=== PATIENT | male | born 1985 | race Hispanic/Latino ===

== ENCOUNTER 2019-01-12 00:58 | Emergency (ER) | payer OTHER ==
[2019-01-12] MEDS ORDERED: Sodium Chloride 0.9% 1,000 ML IV STA (01:24)
[2019-01-12 01:28] VITALS: TEMP 97.8; O2SAT 99
[2019-01-12 01:52] VITALS: BP 137/75; PULSE 68; RESP 18
[2019-01-12 02:11] LABS: BASO % 0.6 % (0.0-2.0); EOS # 0.3 K/uL (0.0-0.7); EOS % 4.6 % (0.0-4.0); HEMOGLOBIN 13.5 g/dL (12.0-18.0); LYMPH # 1.8 K/uL (1.0-4.3); LYMPH % 24.1 % (20.0-40.0); MEAN CELL VOLUME 92.5 fl (80.0-94.0); MEAN CORPUSCULAR HEMOGLOBIN 31.5 pg (27.0-31.0); MEAN PLATELET VOLUME 7.9 fl (7.2-11.7); MONO # 0.8 K/uL (0.0-0.8); MONO % 11.6 % (0.0-10.0); NEUT # 4.3 K/uL (1.8-7.0); NEUT % 59.1 % (50.0-75.0); NRBC % 0.1 % (0.0-0.0); RBC 4.29 Mil/uL (4.40-5.90); RED CELL DISTRIBUTION WIDTH 13.2 % (11.5-14.5); WHITE BLOOD COUNT 7.3 K/uL (4.8-10.8)
[2019-01-12 02:21] LABS: BLOOD UREA NITROGEN 11 mg/dl (9-20); CALCIUM 9.7 mg/dL (8.4-10.2); GFR NON-AFRICAN AMERICAN > 60
--- NOTE | 2019-01-12 02:52 | ED PDOC ---
Syncope/Near Syncope/Dizziness Time Seen by Provider: 01/12/19 01:12 Chief Complaint (Nursing): Weakness/Neurological Deficit Chief Complaint (Provider): Weakness/Neurological Deficit History Per: Patient History/Exam Limitations: no limitations Onset/Duration Of Symptoms: Days (1) Associated Symptoms Preceding Syncopal Episode: Lightheadedness Additional Complaint(s): 33 y/o male with history of anxiety and HLD presents to the ED complaining of dizziness. Patient reports that he developed a cough x3 days ago. He states he went to see his PMD for a physcial on 01/10 and had a tetanus shot at that time. Patient states that all day yesterday he felt dizzy, lightheaded and felt like he was "getting sick" but didn't feel feverish. Patient denies nausea, vomiting, or abdominal pain. Further denies sore throat, recent travel or sick contacts. Past Medical History Vital Signs: Last Vital Signs Temp 97.8 F 01/12/19 01:08 Pulse 68 01/12/19 01:51 Resp 18 01/12/19 01:51 BP 137/75 01/12/19 01:51 Pulse Ox 99 01/12/19 01:51 - Family History Family History: States: Unknown Family Hx - Allergies Allergies/Adverse Reactions: Allergies Allergy/AdvReac Type Severity Reaction Status Date / Time No Known Allergies Allergy Verified 01/12/19 01:11 Review of Systems ROS Statement: Except As Marked, All Systems Reviewed And Found Negative Constitutional: Negative for: Fever ENT: Negative for: Throat Pain Respiratory: Positive for: Cough Gastrointestinal: Negative for: Nausea, Vomiting, Abdominal Pain Neurological: Positive for: Dizziness Physical Exam - Reviewed Nursing Documentation Reviewed: Yes Vital Signs Reviewed: Yes - Physical Exam Appears: Positive for: Well, Non-toxic, No Acute Distress Head Exam: Positive for: ATRAUMATIC, NORMAL INSPECTION, NORMOCEPHALIC Skin: Positive for: Normal Color, Warm, DRY Eye Exam: Positive for: EOMI, Normal appearance, PERRL ENT: Positive for: Normal ENT Inspection Neck: Positive for: Normal, Painless ROM Cardiovascular/Chest: Positive for: Regular Rate, Rhythm. Negative for: Murmur Respiratory: Positive for: Normal Breath Sounds. Negative for: Respiratory Distress Gastrointestinal/Abdominal: Positive for: Normal Exam, Soft. Negative for: Tenderness Back: Positive for: Normal Inspection Extremity: Positive for: Normal ROM. Negative for: Pedal Edema, Deformity Neurological/Psych: Positive for: Awake, Alert, Normal Tone. Negative for: Motor/Sensory Deficits - Laboratory Results Result Diagrams: 01/12/19 01:50 01/12/19 01:50 - ECG O2 Sat by Pulse Oximetry: 99 (RA) Pulse Ox Interpretation: Normal Medical Decision Making Medical Decision Making: Time: 01:24 A/P: Flu-like illness vs. URI vs. Dehydration. Will check basic blood work, hydrate patient and reevaluate. * BMP * CBC w/ diff * IV Fluids * Influenza A B 3:00 Patient is feeling well enough to go home, reassured that labs are normal Remains well appearing, advised plenty of fluids and rest Advised patient to followup with his primary care doctor in 2- 3 days Scribe Attestation: Documented by Papo Marcano, acting as a scribe Puma Alegria MD Provider Scribe Attestation: All medical record entries made by the Scribe were at my direction and personally dictated by me. I have reviewed the chart and agree that the record accurately reflects my personal performance of the history, physical exam, medical decision making, and the department course for this patient. I have also personally directed, reviewed, and agree with the discharge instructions and disposition Disposition - Clinical Impression Clinical Impression: Generalized weakness - Disposition Referrals: KEISHA RIVERA MD [Other] [facility] [Outside] Disposition: Routine/Home Disposition Time: 03:00 Condition: IMPROVED Additional Instructions: Please followup with Dr. Rivera in 2 - 3 days for a checkup. If your symptoms worsen or new or concerning symptoms arise, please return to the E.R. to be re-evaluated. Instructions: Fatigue, Generalized Weakness (DC) Forms: [employer] (Khmer)
== END 2019-01-12 03:55 | disposition home or self-care (01) ==
LOC: H.ER 00:58
DX: R53.1 Weakness (principal)
CPT/HCPCS: 80048; 85025; 87804; 96360; 99282; J7030